=== PATIENT | female | born 1950 | race Caucasian/White ===

== ENCOUNTER 2019-03-15 23:14 | Emergency (ER) | payer MEDICARE, MEDICAID ==
--- NOTE | 2019-03-16 02:58 | ER Document Report ---
ED General - General TRAVEL OUTSIDE OF THE [place] IN LAST 30 DAYS: No - Related Data Home Medications: ABILIFY, LIPITOR, COGENTIN, TEGRETOL, FOLIC ACID, NEURONTIN, ATIVAN, ZYPREXA, OSCAL, VITAMIN B 12, TYLENOL, ROBAFEN <PHONG JONES - Last Filed: 03/16/19 02:50> - General TRAVEL OUTSIDE OF THE [place] IN LAST 30 DAYS: No <FAVIAN GARCIA - Last Filed: 03/16/19 06:23> <FRANCO BALDERRAMA - Last Filed: 03/16/19 08:00> - General Chief Complaint: Fall Stated Complaint: FALL Time Seen by Provider: 03/16/19 02:50 Primary Care Provider: RICHY ULRICH FNP [Primary Care Provider] - Follow up as needed - [facility] Notes: 68-year-old female transported here from alf for evaluation following a fall. Patient at this time complains of some mild discomfort of her left shoulder and left rib cage. She denies striking her head. She denies any neck pain. The patient has a history of Wsylpfy-Ppsfd-Fjanb syndrome seizure disorder schizophrenia and COPD with ongoing cigarette smoking. She is noted to have mild dementia. She uses a walker for ambulation and says that she has had multiple falls in the past. She says tonight the "feet got tangled up". She says her breathing is at her usual baseline. She was transported here by EMS and they state that this patient wheezes each time to transport her. (PHONG JONES) - Related Data Allergies/Adverse Reactions: No Known Allergies Allergy (Unverified 09/07/14 13:26) Past Medical History - General Information source: Patient, Emergency Med Personnel - Social History Smoking Status: Current Every Day Smoker Family History: None Patient has suicidal ideation: No Patient has homicidal ideation: No - Past Medical History Cardiac Medical History: Reports: Hx Hypertension - BP 182/100 at preop. Office notified (L.D.) Denies: Hx Coronary Artery Disease, Hx Heart Attack Pulmonary Medical History: Reports: Hx Pneumonia - yrs ago Denies: Hx Asthma, Hx Bronchitis, Hx COPD Neurological Medical History: Reports: Hx Seizures, Other - Nhurvqh-Gboay-Qxgiq syndrome. 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 HENT: Negative for sore throat. Eyes: Negative for visual changes. Cardiovascular: Negative for chest pain. Respiratory: Negative for shortness of breath. Gastrointestinal: Negative for abdominal pain, vomiting or diarrhea. Genitourinary: Negative for dysuria. Musculoskeletal: Negative for back pain. Skin: Negative for rash. Neurological: Negative for headaches, weakness or numbness. 10 point ROS negative except as marked above and in HPI. (PHONG JONES) Physical Exam <JONESPHONG Darwin - Last Filed: 03/16/19 02:50> - Vital signs Vitals: Temp Pulse Resp BP Pulse Ox 97.8 F 63 20 150/72 H 100 03/15/19 23:14 03/15/19 23:14 03/15/19 23:14 03/15/19 23:14 03/15/19 23:14 - Notes Notes: GENERAL: Obese elderly female appearing chronically ill but not in acute distress. SKIN: Prominent facial hirsutism. Good turgor. Scattered ecchymoses of extremities which appear to be of variable ages. HEAD: Normocephalic atraumatic. EYES: PERRLA. EOMI. Conjunctivae and sclerae clear. EARS: CANALS AND TMS CLEAR. NOSE: CLEAR. MOUTH: Moist mucosa. No stridor or edema. No drooling. Throat: Patient is very hoarse and says this is the normal character of her voice at baseline. NECK: Supple. No tenderness. No crepitus. No step-off. No masses or thyromegaly. No adenopathy. Carotids 2+ without bruits. No JVD. BACK: Symmetrical without tenderness. CHEST: Mild tenderness left lateral rib cage without deformity crepitus or step- off. Respirations unlabored. Expiratory wheezes bilaterally which patient indicates are always present. HEART: Regular rhythm. No murmur gallop or rub. ABDOMEN: Obese. Soft nontender without masses, organomegaly or rebound. Bowel sounds normally active. No bruits. GENITALIA: Deferred. EXTREMITIES: Tender over lateral aspect of left shoulder with no gross deformity. Decreased range of motion secondary to pain but does not appear to be obviously dislocated. Chronic arthritic deformities of both hands and wrists. 1+ pretibial edema bilaterally. No calf tenderness. Cap refill less than 1.5 seconds. Dorsalis pedis and posterior tibial pulses 2+ + and symmetrical. NEUROLOGICAL: GCS 14 with disorientation to date. This is consistent with prior records. Fluent speech. Cranial nerves II through XII intact. No gross sensorimotor deficit. Normal tone. (PHONG JONES) Course <PHONG JONES - Last Filed: 03/16/19 02:50> - Laboratory Result Diagrams: 03/16/19 03:03 03/16/19 03:03 <FAVIAN GARCIA - Last Filed: 03/16/19 06:23> - Laboratory Result Diagrams: 03/16/19 03:03 03/16/19 03:03 <FRANCO BALDERRAMA - Last Filed: 03/16/19 08:00> - Re-evaluation Re-evalutation: 03/16/19 03:06 Requested studies include plain films of left shoulder and chest, EKG, CBC, comp rehensive metabolic profile and Tegretol level. Studies remain pending at this time. Further care the patient is turned over to Dr. Powell at 0300 hrs. (PHONG JONES) 03/16/19 05:43 Chest x-ray shows some basilar atelectasis. Shoulder x-ray notable for osteopenia. No evidence of acute fractures on either. CBC shows leukocytosis without left shift. H&H is stable. CMP notable for some mild hyponatremia. Patient given IV fluids prior to discharge. No evidence of infectious symptoms such as cough, or urinary issues to suggest infectious process. Will order UA and if negative patient will be discharged. 03/16/19 05:44 Carbamazepine level is within normal limits. (FAVIAN GARCIA) - Vital Signs Vital signs: Temp Pulse Resp BP Pulse Ox 98.5 F 67 20 122/54 L 96 03/16/19 04:54 03/16/19 04:54 03/16/19 04:54 03/16/19 04:54 03/16/19 04:54 - Laboratory Laboratory results interpreted by me: 03/16/19 03/16/19 03/16/19 03:03 03:03 06:15 WBC 15.3 H Lymph % (Auto) 8.1 L Absolute Neuts (auto) 13.2 H Seg Neutrophils % 86.1 H Sodium 129.5 L Chloride 85 L Carbon Dioxide 33 H Creatinine 0.51 L Alkaline Phosphatase 128 H Urine Protein 30 H Urine Blood MODERATE H Discharge <PHONG JONES - Last Filed: 03/16/19 02:50> <FAVIAN GARCIA - Last Filed: 03/16/19 06:23> <FRANCO BALDERRAMA - Last Filed: 03/16/19 08:00> - Discharge Clinical Impression: Fall Qualifiers: Encounter type: initial encounter Qualified Code(s): W19.XXXA - Unspecified fall, initial encounter Osteopenia Qualifiers: Osteopenia location: unspecified Qualified Code(s): M85.80 - Other specified disorders of bone density and structure, unspecified site Condition: Good Disposition: HOME, SELF-CARE Additional Instructions: Please call your primary care doctor as soon as possible to arrange follow-up Referrals: RICHY ULIRCH FNP [Primary Care Provider] - Follow up tomorrow
[2019-03-16 03:16] LABS: ABSOLUTE LYMPHOCYTES (AUTO) 1.2 10^3/uL (0.5-4.7); ABSOLUTE MONOCYTES (AUTO) 0.8 10^3/uL (0.1-1.4); ABSOLUTE NEUT (AUTO) 13.2 10^3/uL (1.7-8.2); BASOPHILS % (AUTO) 0.3 % (0-2); EOSINOPHILS % (AUTO) 0.2 % (0-6); HEMATOCRIT 39.7 % (36.0-47.0); HEMOGLOBIN 13.4 g/dL (12.0-15.5); LYMPHOCYTES % (AUTO) 8.1 % (13-45); MEAN CORPUSCULAR HEMOGLOBIN 31.4 pg (27.0-33.4); MEAN CORPUSCULAR HGB CONC 33.8 g/dL (32.0-36.0); MEAN CORPUSCULAR VOLUME 93 fl (80-97); MONOCYTES % (AUTO) 5.3 % (3-13); PLATELET COUNT 245 10^3/uL (150-450); RED BLOOD COUNT 4.27 10^6/uL (3.72-5.28); RED CELL DISTRIBUTION WIDTH 13.6 % (11.5-14.0); SEGMENTED NEUTROPHILS % (AUTO) 86.1 % (42-78); TOTAL CELLS COUNTED % (AUTO) 100 %; WHITE BLOOD COUNT 15.3 10^3/uL (4.0-10.5)
[2019-03-16 03:28] LABS: ALBUMIN 4.2 g/dL (3.5-5.0); ALKALINE PHOSPHATASE 128 U/L (38-126); ANION GAP 12 (5-19); ASPARTATE AMINO TRANSFERASE 19 U/L (14-36); BILIRUBIN,DIRECT 0.1 mg/dL (0.0-0.4); BILIRUBIN,TOTAL 0.4 mg/dL (0.2-1.3); BLOOD UREA NITROGEN 19 mg/dL (7-20); CALCIUM 9.4 mg/dL (8.4-10.2); CARBON DIOXIDE 33 mmol/L (22-30); CHLORIDE 85 mmol/L (98-107); GLUCOSE 108 mg/dL (75-110); POTASSIUM 3.9 mmol/L (3.6-5.0); TOTAL PROTEIN 7.4 g/dL (6.3-8.2)
--- NOTE | 2019-03-16 04:22 | RADIOLOGY REPORT (SQ) ---
EXAM DESCRIPTION: XR CHEST 1 VIEW COMPLETED DATE/TME: 03/16/2019 02:11 CLINICAL HISTORY: Fall/pain COMPARISON: 02/22/2018 FINDINGS: Single frontal view of the chest. Cardiomediastinal silhouette: Atherosclerotic calcification of the thoracic aorta. Heart is not enlarged. Lungs: Low lung volumes. Linear bibasilar opacities. No pneumothorax or large effusion. Bones: Degenerative change of the spine and shoulders. Upper abdomen: No abnormality identified. IMPRESSION: 1. Linear bibasilar opacities likely representing subsegmental atelectasis.
--- NOTE | 2019-03-16 04:23 | RADIOLOGY REPORT (SQ) ---
EXAM DESCRIPTION: XR SHOULDER 2 OR MORE VIEWS COMPLETED DATE/TME: 03/16/2019 02:10 CLINICAL HISTORY: 68 years, Female, fall COMPARISON: None. NUMBER OF VIEWS: 3 TECHNIQUE: 3 views left shoulder LIMITATIONS: None. FINDINGS: Osteopenia. Degenerative changes of the acromioclavicular and glenohumeral joints. Negative for acute fracture or dislocation IMPRESSION: Osteopenia with degenerative change copyright 2010 [employer]- All Rights Reserved
[2019-03-16] MEDS ORDERED: NORMAL SALINE 1000 ML 1,000 ML IV ONE (05:45)
[2019-03-16 06:43] LABS: APPEARANCE,URINE CLEAR; BILIRUBIN,URINE NEGATIVE (NEGATIVE); COLOR,URINE YELLOW; GLUCOSE, URINE NEGATIVE (NEGATIVE); KETONES,URINE NEGATIVE (NEGATIVE); LEUKOCYTE ESTERASE,URINE NEGATIVE (NEGATIVE); NITRITE,URINE NEGATIVE (NEGATIVE); PROTEIN,URINE 30 mg/dL (NEGATIVE); URINE SPECIFIC GRAVITY 1.017; UROBILINOGEN,URINE NEGATIVE mg/dL (<2.0)
--- NOTE | 2019-03-16 07:05 | EKG REPORT ---
SEVERITY:- ABNORMAL ECG - SINUS RHYTHM FIRST DEGREE AVB EARLY PRECORDIAL TRANSITION, NEEDS TO R/O OLD TRUE POST AL. : Confirmed by: Kris Mcbride MD 16-Mar-2019 07:05:09
[2019-03-16 08:04] VITALS: BP 132/71
== END 2019-03-16 08:15 | disposition home or self-care (01) ==
LOC: ER 23:14
DX: M25.512 Pain in left shoulder (principal); W19.XXXA Unspecified fall, initial encounter; Y92.121 Bathroom in nursing home as the place of occurrence of the external cause; M85.812 Other specified disorders of bone density and structure, left shoulder; J98.11 Atelectasis; D72.829 Elevated white blood cell count, unspecified; E87.1 Hypo-osmolality and hyponatremia; M19.042 Primary osteoarthritis, left hand; M19.041 Primary osteoarthritis, right hand; M19.032 Primary osteoarthritis, left wrist; M19.031 Primary osteoarthritis, right wrist; L68.0 Hirsutism; R58 Hemorrhage, not elsewhere classified; R49.0 Dysphonia; R60.0 Localized edema; F17.210 Nicotine dependence, cigarettes, uncomplicated; F03.90 Unspecified dementia, unspecified severity, without behavioral disturbance, psychotic disturbance, mood disturbance, and anxiety; I10 Essential (primary) hypertension; G60.0 Hereditary motor and sensory neuropathy; F20.9 Schizophrenia, unspecified; G40.909 Epilepsy, unspecified, not intractable, without status epilepticus; Z79.899 Other long term (current) drug therapy
CPT/HCPCS: 93005; 99284; 96360; 36415; 80156; 85025; 80053; 81001; 71045; 73030; 93010; J7030